=== PATIENT | male | born 1970 | race Hispanic/Latino ===

== ENCOUNTER 2017-03-27 07:23 | Emergency (ER) | payer OTHER ==
[2017-03-27 07:32] VITALS: BP 133/92
[2017-03-27] MEDS ORDERED: NORCO 5/325 PO ONE (08:08)
--- NOTE | 2017-03-27 08:08 | Emergency Department Report ---
ED Back Pain/Injury HPI - General Chief Complaint: Back Pain/Injury Stated Complaint: RIGHT LEG PAIN AND LOWER BACK INURY Time Seen by Provider: 03/27/17 07:45 Source: patient Limitations: No Limitations - History of Present Illness Initial Comments: 46-year-old male past medical history lower back pain/sciatica right side presents with acute on chronic right-sided buttock pain radiating through right leg. Patient states that he was sitting for nearly 3 hours while on a plane within the last day which may have exacerbated his sciatica. Patient is awake alert and oriented 3 appears uncomfortable states that pain as pulsing through his right buttock into his right thigh. Denies any bladder or bowel incontinence denies saddle paresthesias. Denies erectile dysfunction. Patient is visibly walking without assistance. Patient states he is on naproxen prednisone and cyclobenzaprine as prescribed by his primary doctor for this pain. States he has an MRI scheduled in the beginning of April within the next 2 weeks as an outpatient. Patient states that the pain medicine is currently taking is only providing him with minimal relief. Patient denies any recent falls denies any recent trauma to the lower back. Patient is accompanied by a coworker. Patient states that this issue began for him just over a month ago when he did a twisting motion and involving his lower back. Patient states he was lifting furniture at that time. This was approximately 5- 6 weeks ago. Complaint: back pain -: This morning Similar Symptoms Previously: Yes (1 motnh fo right sided sciatica) Place: work Severity: moderate Severity scale (0 -10): 7 Quality: sharp, aching Consistency: constant Improves With: immobilization Context: while lifting, turning/twisting - Related Data Previous Rx's Medication Instructions Recorded Last Taken Type HYDROcodone/APAP 5-325 [[place] 1 each PO Q6HR PRN #12 tablet 03/27/17 Unknown Rx 5/325] Ondansetron [Zofran Odt] 4 mg PO Q8HR PRN #10 tab.rapdis 03/27/17 Unknown Rx Allergies Allergy/AdvReac Type Severity Reaction Status Date / Time latex AdvReac Rash Verified 03/27/17 07:33 ED Review of Systems ROS: Stated complaint: RIGHT LEG PAIN AND LOWER BACK INURY Other details as noted in HPI Constitutional: denies: chills, fever Eyes: denies: eye pain, eye discharge, vision change ENT: denies: ear pain, throat pain Respiratory: denies: cough, shortness of breath, wheezing Cardiovascular: denies: chest pain, palpitations Endocrine: no symptoms reported Gastrointestinal: denies: abdominal pain, nausea, diarrhea Genitourinary: denies: urgency, dysuria Musculoskeletal: as per HPI, back pain. denies: joint swelling, arthralgia Skin: denies: rash, lesions Neurological: denies: headache, weakness, paresthesias Psychiatric: denies: anxiety, depression Hematological/Lymphatic: denies: easy bleeding, easy bruising ED Past Medical Hx - Past Medical History Previous Medical History?: No - Surgical History Past Surgical History?: No - Social History Smoking Status: Current Every Day Smoker Substance Use Type: None - Medications Home Medications: Home Medications Medication Instructions Recorded Confirmed Last Taken Type HYDROcodone/APAP 5-325 [[place] 1 each PO Q6HR PRN #12 tablet 03/27/17 Unknown Rx 5/325] Ondansetron [Zofran Odt] 4 mg PO Q8HR PRN #10 tab.rapdis 03/27/17 Unknown Rx ED Physical Exam - General Limitations: No Limitations General appearance: alert, in no apparent distress - Head Head exam: Present: atraumatic, normocephalic - Eye Eye exam: Present: normal appearance, PERRL, EOMI - ENT ENT exam: Present: mucous membranes moist - Neck Neck exam: Present: normal inspection - Respiratory Respiratory exam: Present: normal lung sounds bilaterally. Absent: respiratory distress - Cardiovascular Cardiovascular Exam: Present: regular rate, normal rhythm. Absent: systolic murmur, diastolic murmur, rubs, gallop - GI/Abdominal GI/Abdominal exam: Present: soft, normal bowel sounds - Rectal Rectal exam: Present: deferred - Extremities Exam Extremities exam: Present: normal inspection - Back Exam Back exam: Present: normal inspection - Expanded Back Exam Expanded Back exam: Present: normal rectal tone Back exam: Positive Straight Leg Raise: Right (30 degrees) - Neurological Exam Neurological exam: Present: alert, oriented X3, CN II-XII intact, normal gait - Expanded Neurological Exam Expanded Patient oriented to: Present: person, place, time Motor strength exam: RUE: 5, LUE: 5, RLE: 5, LLE: 5 DTR: knee (R): 3+, knee (L): 3+, ankle (R): 3+, ankle (L): 3+ Best Eye Response ([place]): (4) open spontaneously Best Motor Response (Faith): (6) obeys commands Best Verbal Response ([place]): (5) oriented Faith Total: 15 - Psychiatric Psychiatric exam: Present: normal affect, normal mood - Skin Skin exam: Present: warm, dry, intact, normal color. Absent: rash ED Course Vital Signs 03/27/17 03/27/17 07:29 08:20 Temperature 97.8 F Pulse Rate 71 Respiratory 16 22 Rate Blood Pressure 133/92 O2 Sat by Pulse 98 Oximetry ED Medical Decision Making - Medical Decision Making A/P: Sciatica right side, lower back pain 1-patient has no signs of cord impingement or cauda equina. Distal knee jerk and ankle reflexes intact, rectal tone intact, patient is ambulatory, strength 5 /5 bilateral lower extremities. 2-patient already has full prescriptions of naproxen and cyclobenzaprine and prednisone course. 3-will give patient short course of [place] for acute pain 4- patient lives in [place] and states he will follow up with primary care and orthopedics there. Patient states he will be in [facility] for approximately 1 week on business. I will give him information for local orthopedics and spine health clinics. Critical care attestation.: If time is entered above; I have spent that time in minutes in the direct care of this critically ill patient, excluding procedure time. ED Disposition Clinical Impression: Sciatica, right side Disposition: DC-01 TO HOME OR SELFCARE Is pt being admited?: No Does the pt Need Aspirin: No Condition: Stable Instructions: Sciatica (ED), Acute Low Back Pain (ED), Piriformis Syndrome (ED) Additional Instructions: [email or web address] Prescriptions: HYDROcodone/APAP 5-325 [[place] 5/325] 1 each PO Q6HR PRN #12 tablet PRN Reason: Pain Ondansetron [Zofran Odt] 4 mg PO Q8HR PRN #10 tab.rapdis PRN Reason: Nausea Referrals: MADELINE HALL MD [Staff Physician] - 3-5 Days [facility] [Provider Group] - 3-5 Days Forms: Accompanied Note, Work/School Release Form(ED) Time of Disposition: 08:48
[2017-03-27] MEDS ORDERED: TORADOL IM ONE (08:09)
[2017-03-27] MEDS ORDERED: TORADOL ONE (08:18)
== END 2017-03-27 09:10 | disposition home or self-care (01) ==
LOC: ED 07:23
DX: M54.31 Sciatica, right side (principal); F17.200 Nicotine dependence, unspecified, uncomplicated; Z91.040 Latex allergy status
CPT/HCPCS: 96372; 99282; J1885